=== PATIENT | male | born 1945 ===

== ENCOUNTER → 2022-01-28 09:58 | Outpatient (BNVA) | payer MEDICARE, BC, SELFPAY | PROVIDERS: PCP Internal Medicine; Visit Provider Nurse Practitioner Family | DX: G47.52 REM sleep behavior disorder (principal); R25.1 Tremor, unspecified; M54.2 Cervicalgia; C90.00 Multiple myeloma not having achieved remission; R20.1 Hypoesthesia of skin; R20.2 Paresthesia of skin | CPT/HCPCS: 99202 ==